=== PATIENT | female | born 1965 | race Caucasian/White ===

== ENCOUNTER 2017-07-16 16:16 | Emergency (ER) | payer MEDICAID ==
[~2017-07-16] VITALS: Ht 172.7 cm; Wt 81.6 kg
[2017-07-16 16:19] VITALS: BP 160/103
[2017-07-16] MEDS: KETOROLAC 60 MG/2 ML VIAL IM ONE (16:51)
[2017-07-16] MEDS: fentaNYL 0.05 MG/ML VIAL IM ONE ×2 (17:45→18:51)
[2017-07-16 19:05] VITALS: BP 158/99
[2017-07-16] MEDS ORDERED: SILVER NITRATE APPLICATOR 1 EA SWAB TP ONE (19:06)
== END 2017-07-16 19:05 | disposition home or self-care (01) ==
LOC: MED 16:16
DX: S01.01XA Laceration without foreign body of scalp, initial encounter (principal); Z88.0 Allergy status to penicillin; Y04.2XXA Assault by strike against or bumped into by another person, initial encounter; Y93.89 Activity, other specified; Y92.89 Other specified places as the place of occurrence of the external cause; Y99.8 Other external cause status
CPT/HCPCS: 12001; 90471; 90715; 96372; 99284; J1885; J3010

== ENCOUNTER 2017-08-02 21:56 | Emergency (ER) | payer MEDICAID ==
[~2017-08-02] VITALS: Ht 170.2 cm; Wt 84.8 kg
[2017-08-02 22:00] VITALS: BP 151/78
--- NOTE | 2017-08-02 22:09 | NUR ---
PT PROVIDED W/ URINE CUP AND ASSISTED TO RESTROOM.
--- NOTE | 2017-08-02 22:12 | NUR ---
PT ASSISTED TO LOBBY. VSS
--- NOTE | 2017-08-02 23:42 | NUR ---
PT TAKEN TO BED 11
--- NOTE | 2017-08-02 23:50 | NUR ---
PT C/O LUE PAIN FROM A CHRONIC INJURY (PINCHED NERVE AND DEGENARATIVE DISK) THAT WORSENED TODAY AND OVER THE LAST YEAR. PATIENT STATED THAT SHE IS INBETWEEN FINDING DOCTORS AND IS LOOKING FOR PAIN MANAGEMENT. PATIENT IS ALERT AND ORIENTED, NO ACUTE DISTRESS NOTED. WILL CONTINUE TO MONITOR CLOSELY.
--- NOTE | 2017-08-03 00:27 | NUR ---
Dr. Garcia evaluating patient at bedside.
[2017-08-03] MEDS ORDERED: CYCLOBENZAPRINE 10 MG TAB PO ONE (00:50)
[2017-08-03] MEDS ORDERED: KETOROLAC 30 MG/ML VIAL IM ONE (00:50)
[2017-08-03 01:04] LABS: APPEARANCE,URINE CLEAR (CLEAR); BILIRUBIN,URINE NEGATIVE (NEGATIVE); BLOOD, URINE NEGATIVE (NEGATIVE); COLOR,URINE YELLOW (YELLOW); LEUKOCYTE ESTERASE ,URINE NEGATIVE (NEGATIVE); NITRITE, URINE NEGATIVE (NEGATIVE); UGLUCOSE NEGATIVE (NEGATIVE)
[2017-08-03 01:11] LABS: BARBITURATE, URINE NEG. ng/ml (NEG <=200); BENZODIAZEPINE, URINE NEG. ng/mL (NEG <=200); CANNABINOID, URINE NEG. ng/mL (NEG <=50); COCAINE, URINE NEG. ng/mL (NEG <=300); OPIATE, URINE NEG. ng/mL (NEG <=2000); PHENCYCLIDINE SCREEN,URINE NEG. ng/mL (NEG <=25)
--- NOTE | 2017-08-03 01:17 | NUR ---
PATIENT ON STRETCHER IN NO ACUTE DISTRESS, WILL CONTINUE TO MONITOR CLOSELY.
[2017-08-03 02:05] VITALS: BP 138/67
--- NOTE | 2017-08-03 02:13 | NUR ---
Patient discharged with v/s stable. Written and verbal after care instructions given and explained. Patient alert, oriented and verbalized understanding of instructions. Ambulatory with steady gait. All questions addressed prior to discharge. ID band removed. Patient advised to follow up with PMD. Rx of FLEXERIL, IBUPROFEN AND NORCO given. Patient educated on indication of medication including possible reaction and side effects. Opportunity to ask questions provided and answered.
== END 2017-08-03 02:13 | disposition home or self-care (01) ==
LOC: MED 21:56
DX: M54.42 Lumbago with sciatica, left side (principal); Z88.0 Allergy status to penicillin
CPT/HCPCS: 80305; 81003; 96372; 99284; J1885

== ENCOUNTER 2017-12-21 16:53 | Emergency (ER) | payer MEDICAID ==
[~2017-12-21] VITALS: Ht 165.1 cm; Wt 88.0 kg
[2017-12-21 16:55] VITALS: BP 112/77
--- NOTE | 2017-12-21 16:57 | NUR ---
PT TO BED 6 VIA WHEELCHAIR
--- NOTE | 2017-12-21 17:00 | NUR ---
52Y/F BIB SELF C/O CHRONIC LOWER BACK PAIN RADIATING TO BL LOWER EXT WORSE ON THE LT FOR THE LAST MONTH; DENIES INJURY. PT IS AAOX4, VSS, BED DOWN, BEDRAIL UP X 1, ER MD AWARE AND NOTIFIED OF PT STATUS. HX; RHEUMATOID ARTHRITIS, COPD, HTN, HEP C RX; LOSARTAN, HYDROXYZINE, BACLOFEN, CYCLOBENZAPRINE
[2017-12-21] MEDS ORDERED: KETOROLAC 60 MG/2 ML VIAL IM ONE (17:45)
--- NOTE | 2017-12-21 17:45 | NUR ---
Patient being evaluated by physician at bedside.
[2017-12-21 18:44] VITALS: BP 138/77
--- NOTE | 2017-12-21 18:44 | NUR ---
Patient discharged with v/s stable. Written and verbal after care instructions given and explained. Patient alert, oriented and verbalized understanding of instructions. Wheel Chair Assisted with to car. All questions addressed prior to discharge. ID band removed. Patient advised to follow up with PMD. Rx of Tramadol given. Patient educated on indication of medication including possible reaction and side effects. Opportunity to ask questions provided and answered.
== END 2017-12-21 18:44 | disposition home or self-care (01) ==
LOC: MED 16:53
DX: M54.5 Low back pain (principal); I10 Essential (primary) hypertension; J44.9 Chronic obstructive pulmonary disease, unspecified; F17.200 Nicotine dependence, unspecified, uncomplicated; Z87.39 Personal history of other diseases of the musculoskeletal system and connective tissue; Z88.0 Allergy status to penicillin
CPT/HCPCS: 96372; 99283; J1885

== ENCOUNTER 2018-03-27 13:57 | Emergency (ER) | payer MEDICAID ==
[~2018-03-27] VITALS: Ht 170.2 cm; Wt 90.7 kg
[2018-03-27 14:03] VITALS: BP 153/112
--- NOTE | 2018-03-27 14:09 | NUR ---
53 YO FEMALE BIBA C/O LOW BACK PAIN X 4 DAYS & WORSE TODAY. HX 0F SCIATICA, HTN, HEP CM ASTHMA, COPD. ALLERGY TO PCN. AWAKE AND ALERT ON ARRIVAL. DENIES N/V/D. PATIENT STATES PAIN OF 8/10 AT THIS TIME. PATIENT POSITIONED FOR COMFORT; HOB ELEVATED; BEDRAILS UP X2; BED DOWN. ER MD MADE AWARE OF PT STATUS.
[2018-03-27] MEDS ORDERED: methylPREDNISolone SS 125 MG in WATER STERILE 2 ML IM ONE (14:35)
[2018-03-27] MEDS ORDERED: HYDROcodone/APAP 10/325 MG 1 TAB TAB PO ONE (14:35)
[2018-03-27 15:37] VITALS: BP 153/112
--- NOTE | 2018-03-27 15:37 | NUR ---
Patient discharged with v/s stable. Written and verbal after care instructions given and explained. Patient alert, oriented and verbalized understanding of instructions. Wheel Chair Assisted with to car. All questions addressed prior to discharge. ID band removed. Patient advised to follow up with PMD. Rx of ULTRAM & NACAN given. Patient educated on indication of medication including possible reaction and side effects. Opportunity to ask questions provided and answered.
== END 2018-03-27 15:37 | disposition home or self-care (01) ==
LOC: MED 13:57
DX: M54.31 Sciatica, right side (principal); I10 Essential (primary) hypertension; J44.9 Chronic obstructive pulmonary disease, unspecified; Z88.0 Allergy status to penicillin
CPT/HCPCS: 96372; 99283; J2930

== ENCOUNTER 2018-11-17 20:20 | Emergency (ER) | payer MEDICAID, OTHER ==
[~2018-11-17] VITALS: Ht 170.2 cm; Wt 90.7 kg
[2018-11-17 20:25] VITALS: BP 173/104
--- NOTE | 2018-11-17 20:33 | NUR ---
PT WHEELCHAIR TO LOBBY.
--- NOTE | 2018-11-17 20:50 | NUR ---
PATIENT PRESENTS TO ED WITH C/O GENERALIZED BODY ACHES X 2 DAYS. PATIENT STATES GX SCIATICA AND SCOLIOSIS, RAN OUT OF NORCO 10/325MG 3 WEEKS AGO, AND IS IN TRANSITION OF MOVING FOR [facility] TO [facility] . PT DENIES N/V/D; SKIN IS PINK/WARM/DRY; AAOX4 WITH EVEN AND STEADY GAIT; LUNGS CLEAR BL; HR EVEN AND REGULAR; PT DENIES ANY FEVER, CP, SOB, OR COUGH AT THIS TIME; PATIENT STATES PAIN OF 10/10 AT THIS TIME; VSS; PATIENT POSITIONED FOR COMFORT; HOB ELEVATED; BEDRAILS UP X2; BED DOWN. ER MD MADE AWARE OF PT STATUS.
[2018-11-17] MEDS ORDERED: KETOROLAC 30 MG/ML VIAL IM ONE (21:00)
--- NOTE | 2018-11-17 21:34 | NUR ---
Patient discharged with v/s stable. Written and verbal after care instructions given and explained. Patient alert, oriented and verbalized understanding of instructions. Ambulatory with steady gait. All questions addressed prior to discharge. ID band removed. Patient advised to follow up with PMD. Rx of NORCO 5/325 given. Patient educated on indication of medication including possible reaction and side effects. Opportunity to ask questions provided and answered.
[2018-11-17 21:40] VITALS: BP 155/91
== END 2018-11-17 21:40 | disposition home or self-care (01) ==
LOC: MED 20:20
DX: G89.29 Other chronic pain (principal); M41.9 Scoliosis, unspecified; I10 Essential (primary) hypertension; Z87.39 Personal history of other diseases of the musculoskeletal system and connective tissue; Z76.0 Encounter for issue of repeat prescription; Z88.0 Allergy status to penicillin
CPT/HCPCS: 96372; 99283; J1885

== ENCOUNTER 2018-12-15 17:06 | Emergency (ER) | payer OTHER ==
[~2018-12-15] VITALS: Ht 165.1 cm; Wt 101.6 kg
[2018-12-15 17:11] VITALS: BP 166/90
--- NOTE | 2018-12-15 17:20 | NUR ---
WAIT AT LOBBY WITH APPEALS ANALYST
--- NOTE | 2018-12-15 17:43 | NUR ---
PT W/C ASSISTED TO BED 11.
--- NOTE | 2018-12-15 17:46 | NUR ---
REFERRED FROM CLINIC C/O LEFT NECK ABSCESS X YESTERDAY. MED HX: HTN,COPD, ASRTHMA, RA, SCOLIOSIS, SCIATICA
[2018-12-15] MEDS ORDERED: KETOROLAC 30 MG/ML VIAL IM ONE (19:10)
[2018-12-15 19:56] LABS: BASOPHILS % (AUTO) 0.5 % (0.0-2.0); EOSINOPHILS # (AUTO) 0.1 K/uL (0-0.4); EOSINOPHILS % (AUTO) 2.2 % (0.0-4.0); HEMATOCRIT 43.4 % (36-48); HEMOGLOBIN 14.4 g/dL (12.0-16.0); LYMPHOCYTES % (AUTO) 19.6 % (20.5-51.1); MEAN CORPUSCULAR HEMOGLOBIN 33 pg (27-31); MEAN CORPUSCULAR HGB CONC 33 g/dL (33-37); MEAN CORPUSCULAR VOLUME 100.2 fL (80-94); MONOCYTES # (AUTO) 0.4 K/uL (0.8-1.0); MONOCYTES % (AUTO) 7.8 % (1.7-9.3); NEUTROPHILS # (AUTO) 3.7 K/uL (1.8-7.7); NEUTROPHILS % (AUTO) 69.9 % (42.2-75.2); PLATELET COUNT (AUTO) 111 K/uL (140-450); RED BLOOD CELL COUNT(AUTO) 4.34 MIL/uL (4.20-5.40); RED CELL DISTRIBUTION WIDTH 16.6 % (11.6-13.7); WHITE BLOOD COUNT (AUTO) 5.2 K/uL (4.8-10.8)
[2018-12-15 20:29] LABS: ANION GAP 9.3 (8-16); CARBON DIOXIDE 30.5 mmol/L (21-32); CREATININE 0.8 mg/dL (0.6-1.3); POTASSIUM 3.8 mmol/L (3.5-5.1)
[2018-12-15 20:35] LABS: ALBUMIN 2.9 g/dL (3.4-5.0); TOTAL BILIRUBIN 1.2 mg/dL (0.0-1.0)
--- NOTE | 2018-12-15 20:50 | NUR ---
NANCY CLIFFORD WITH PT
[2018-12-15] MEDS ORDERED: diphenhydrAMINE 50 MG/ML VIAL IVP ONE (21:15)
[2018-12-15] MEDS ORDERED: CLINDAMYCIN 600 MG in DEXTROSE 5% 50 ML IV ONE (21:15)
[2018-12-15] MEDS ORDERED: CLINDAMYCIN 600 MG/4 ML VIAL ONE (21:25)
[2018-12-15 22:09] VITALS: BP 171/80
--- NOTE | 2018-12-15 22:09 | NUR ---
PT DISCHARGED WITH PAPERWORK. RX BACTRIM. EDUCATED PT REGARDING MEDICATION AND S/E. EDUCATED PT REGARDING D/C DIAGNOSIS AND INSTRUCTIONS. PT VERBALIZED UNDERSTANDING OF TEACHING. TOLD PT TO FOLLOW UP WITH PCP AND WHEN TO RETURN TO ED. PT VSS. ALL QUESTIONS ANSWERED.
== END 2018-12-15 22:09 | disposition home or self-care (01) ==
LOC: MED 17:06
DX: L03.221 Cellulitis of neck (principal); Z88.0 Allergy status to penicillin
CPT/HCPCS: 36415; 70491; 80053; 83605; 85025; 87040; 96365; 96372; 96375; 99284; J1200; J1885; J3490; Q9967

== ENCOUNTER 2019-10-12 12:18 | Emergency (ER) | payer OTHER ==
[~2019-10-12] VITALS: Ht 170.2 cm; Wt 101.8 kg
[2019-10-12 12:26] VITALS: BP 122/82
[2019-10-12] MEDS ORDERED: HYDR-5092 PO (12:35)
--- NOTE | 2019-10-12 12:35 | NUR ---
PT BIB SELF VIA W/C C/O ABD/BACK PAIN STS " PANCREATITIS AND SCIATIC PAIN FOR 2 WEEKS." PAIN 10/10, PT STS "PAIN MEDS ARE NOT HELPING ANY MORE." PT WAS SEEN AT [facility] FOR SAME S/S 09/30 GIVEN IM PAIN MEDS AND SENT HOME. PT DENIES N/V/D; SKIN IS INTACT, JAUNDICE/WARM/DRY; AAOX4, PERRL, UNSTEADY GAIT S/P BACK PAIN FOR YEARS; LUNGS CLEAR BL, BREATHING UNLABORED; HR EVEN AND REGULAR, BL PERIPHERAL PULSES PRESENT; BS ACTIVE X4, NO TENDERNESS TO PALPATION. PT DENIES ANY FEVER, CP, SOB, OR COUGH AT THIS TIME; PT STATES 10/10 PAIN AT THIS TIME; VSS; PATIENT POSITIONED FOR COMFORT; HOB ELEVATED; BEDRAILS UP X2; BED DOWN.
--- NOTE | 2019-10-12 12:36 | NUR ---
PT TO ER BED12 VIA W/C UA DONE
[2019-10-12] MEDS ORDERED: PANTOPRAZOLE 40 MG INJ VIAL IVP ONE (12:40)
[2019-10-12] MEDS ORDERED: NACL 0.9% 500 ML IV ONE (12:40)
[2019-10-12 12:59] LABS: BASOPHILS # (AUTO) 0.1 K/uL (0.00-0.22); EOSINOPHILS # (AUTO) 0.2 K/uL (0-0.4); EOSINOPHILS % (AUTO) 2.3 % (0.0-4.0); HEMATOCRIT 33.2 % (36-48); HEMOGLOBIN 11.3 g/dL (12.0-16.0); LYMPHOCYTES # (AUTO) 1.6 K/uL (2.5-16.5); LYMPHOCYTES % (AUTO) 19.7 % (20.5-51.1); MEAN CORPUSCULAR HEMOGLOBIN 41 pg (27-31); MEAN CORPUSCULAR HGB CONC 34 g/dL (33-37); MEAN CORPUSCULAR VOLUME 120.8 fL (80-94); MONOCYTES # (AUTO) 1.1 K/uL (0.8-1.0); MONOCYTES % (AUTO) 12.9 % (1.7-9.3); NEUTROPHILS # (AUTO) 5.3 K/uL (1.8-7.7); NEUTROPHILS % (AUTO) 64.1 % (42.2-75.2); PLATELET COUNT (AUTO) 174 K/uL (140-450); RED BLOOD CELL COUNT(AUTO) 2.75 MIL/uL (4.20-5.40); RED CELL DISTRIBUTION WIDTH 21.8 % (11.6-13.7); WHITE BLOOD COUNT (AUTO) 8.2 K/uL (4.8-10.8)
--- NOTE | 2019-10-12 13:00 | NUR ---
LAB AT [facility], ER TO MAGDA.
[2019-10-12 13:12] LABS: CARBON DIOXIDE 28.7 mmol/L (21-32); POTASSIUM 3.7 mmol/L (3.5-5.1)
[2019-10-12 13:15] LABS: ALBUMIN 2.1 g/dL (3.4-5.0); TOTAL BILIRUBIN 7.1 mg/dL (0.0-1.0)
[2019-10-12 13:25] LABS: ACETAMINOPHEN < 0.5 ug/ml (10-30); SALICYLATE < 2.8 mg/dL (2.8-20.0)
[2019-10-12] MEDS ORDERED: MORPHINE SULFATE 2 MG/ML SYR IVP ONE (14:05)
[2019-10-12] MEDS ORDERED: ONDANSETRON 4 MG/2 ML VIAL IVP ONE (14:05)
[2019-10-12 14:09] LABS: BARBITURATE, URINE NEGATIVE ng/ml (NEG <=200); BENZODIAZEPINE, URINE NEGATIVE ng/mL (NEG <=200); CANNABINOID, URINE NEGATIVE ng/mL (NEG <=50); COCAINE, URINE NEGATIVE ng/mL (NEG <=300); OPIATE, URINE POSITIVE ng/mL (NEG <=2000); PHENCYCLIDINE SCREEN,URINE NEGATIVE ng/mL (NEG <=25)
[2019-10-12 14:36] VITALS: BP 118/78
--- NOTE | 2019-10-12 14:36 | NUR ---
Patient discharged with v/s stable. Written and verbal after care instructions given and explained. Patient verbalized understanding. WC ASSISTED. All questions addressed prior to discharge. Advised to follow up with PMD.
== END 2019-10-12 14:36 | disposition home or self-care (01) ==
LOC: MED 12:18
DX: F10.10 Alcohol abuse, uncomplicated (principal); E80.6 Other disorders of bilirubin metabolism; M54.16 Radiculopathy, lumbar region; M54.18 Radiculopathy, sacral and sacrococcygeal region; Z88.0 Allergy status to penicillin; Z79.899 Other long term (current) drug therapy
CPT/HCPCS: 36415; 80053; 80305; 81002; 83690; 85025; 93005; 96361; 96374; 96375; 99284; C9113; G0480; G0482; J2270; J2405; J7030

== ENCOUNTER 2019-10-15 17:03 | Inpatient (IN) | payer OTHER ==
[~2019-10-15] VITALS: Ht 165.1 cm; Wt 99.8 kg
[~2019-10-15 17:03] MED LIST: HYDR-5092 PO
[2019-10-15 17:07] VITALS: BP 116/57
[2019-10-15] MEDS ORDERED: MORPHINE SULFATE 4 MG/ML SYR IVP ONE (17:35)
[2019-10-15] MEDS ORDERED: BACL10TA4 PO (17:47)
[2019-10-15] MEDS ORDERED: LISI10TA11 PO (17:47)
[2019-10-15] MEDS ORDERED: MONT10TA35 PO (17:47)
--- NOTE | 2019-10-15 17:52 | NUR ---
54 YO FEMALE BIBA FROM HOME C/O RIGHT SIDED CHEST WALL PAIN X 3 DAYS; PT ALSO C/O BILATERAL LOWER LEG SWELLING X4 DAYS. PT USES WALKER OR W/C AT HOME FOR AMBULATION, DENIES SOB, DENIES N/V HX LIVER CIRRHOSIS, STOPPED DRINKING 3 WEEKS AGO, ASTHMA, COPD, SCIATICA, RA, HTN
--- NOTE | 2019-10-15 17:52 | NUR ---
LAB AND RAD AT BEDSIDE
[2019-10-15 18:04] LABS: BASOPHILS # (AUTO) 0.1 K/uL (0.00-0.22); BASOPHILS % (AUTO) 1.3 % (0.0-2.0); EOSINOPHILS # (AUTO) 0.3 K/uL (0-0.4); EOSINOPHILS % (AUTO) 2.8 % (0.0-4.0); HEMATOCRIT 30.6 % (36-48); HEMOGLOBIN 10.1 g/dL (12.0-16.0); LYMPHOCYTES # (AUTO) 2.1 K/uL (2.5-16.5); MEAN CORPUSCULAR HEMOGLOBIN 41 pg (27-31); MEAN CORPUSCULAR HGB CONC 33 g/dL (33-37); MONOCYTES # (AUTO) 1.1 K/uL (0.8-1.0); MONOCYTES % (AUTO) 11.3 % (1.7-9.3); NEUTROPHILS # (AUTO) 6.4 K/uL (1.8-7.7); NEUTROPHILS % (AUTO) 63.6 % (42.2-75.2); PLATELET COUNT (AUTO) 155 K/uL (140-450); RED BLOOD CELL COUNT(AUTO) 2.51 MIL/uL (4.20-5.40); RED CELL DISTRIBUTION WIDTH 21.2 % (11.6-13.7); WHITE BLOOD COUNT (AUTO) 10.1 K/uL (4.8-10.8)
[2019-10-15 18:14] LABS: ANION GAP 11.2 (8-16); CARBON DIOXIDE 26.2 mmol/L (21-32); CREATININE 0.8 mg/dL (0.6-1.3); POTASSIUM 4.4 mmol/L (3.5-5.1); TOTAL BILIRUBIN 5.2 mg/dL (0.0-1.0)
[2019-10-15] MEDS ORDERED: HYDR-5092 PO (19:15)
[2019-10-15] MEDS ORDERED: ACETAMINOPHEN 325 MG TAB PO PRN (19:20)
--- NOTE | 2019-10-15 19:23 | NUR ---
REPORT RECEIVED FROM BONNIE ESQUIVEL FOR CONTINUITY OF CARE.
--- NOTE | 2019-10-15 20:00 | NUR ---
PT RESTING IN BED, LOCKED AND IN LOWEST POSITION, HOB ELEVATED, SIDE RAIL X2 FOR PT SAFETY. VISIBLE RISE AND FALL OF CHEST, RR EVEN AND UNLABORED, VSS.
--- NOTE | 2019-10-15 20:20 | NUR ---
PT PROVIDED CRACKERS AND ICE CHIPS.
--- NOTE | 2019-10-15 20:50 | NUR ---
Patient will be admitted to care of DR. WHITE. Admited to [facility]. Will go to [id number]. Belongings list completed. Report to BONNIE PATEL.
--- NOTE | 2019-10-15 20:50 | NUR ---
ARRIVED TO THE UNIT AT THIS TIME VIA WHEELCHAIR. PT IS AWAKE AND ALERT REPORTING DISCOMFORT 5/10 TO ABDOMINAL AREA. PREVIOUSLY TREATED WITH MORPHINE IN THE ER. PT HAS R AC 20 THAT IS INTACT AND PATENT. V/S: 99.1, 96, 18, 109/61, 97 % RA. LUNG SOUNDS CLEAR AND ACTIVE BS. ABDOMEN IS ROUND AND REPORTS DISCOMFORT TO UPPER ABDOMINAL AREA. PT HAS DX: ASCITES. PT ORIENTED TO ROOM, TV, RESTROOM AND CALL LIGHT. ALL SAFETY MEASURES IN PLACE. WILL CONTINUE TO MONITOR.
[2019-10-15] MEDS: SPIRONOLACTONE 50 MG TAB PO SCH (21:00)
[2019-10-15] MEDS: FUROSEMIDE 40 MG/4 ML VIAL IVP SCH (21:48)
[2019-10-15] MEDS: HYDROcodone/APAP 10/325 MG 1 TAB TAB PO PRN (21:49)
--- NOTE | 2019-10-15 21:50 | NUR ---
PT RECEIVED NORCO 1 TAB FOR PAIN PER MD ORDER. DUE TO ABDOMINAL PAIN 07/09. PT WAS GIVEN LASIX IVP HOWEVER ALDACTONE WAS HELD DUE TO BP 109/61 AND RECEIVING LASIX. PT COOPERATIVE WITH ADMISSION QUESTIONS. COMMUNICATES EFFECTIVELY CALL LIGHT WITHIN REACH.
--- NOTE | 2019-10-15 23:50 | NUR ---
PT REPORTED HAVING DIFFICULTY SLEEPING. DR. CROWELL PAGED WAITING FOR HIS RESPONSE. DENIES ANY FURTHER DISCOMFORT AT THIS TIME. V/S: 97.6, 96, 18, 106/51, 96% RA. PT EDUCATED ON RELAXATION BREATHING TO PROMOTE SLEEP. SAFETY MEASURES IN PLACE.
[2019-10-16] VITALS: BP 106/55
[2019-10-16] MEDS ORDERED: TEMAZEPAM 15 MG CAP PO PRN (00:05)
--- NOTE | 2019-10-16 01:30 | NUR ---
RECEIVED CALL FROM PHARMACY REGARDING NOT HAVING RESTORIL 7.5 MG PO PER MD ORDER. ONLY HAVE 15MG PO. PAGED DR. CROWELL AND ORDERED TO D/C PREVIOUS RESTORIL ORDER AND ORDERED RESTORIL 15MG PO X1 NOW FOR INSOMNIA. PT IS NOW SLEEPING IN NO DISTRESS. MEDICATION WILL NOT BE GIVEN DUE TO PT. NOW ASLEEP.
[2019-10-16] MEDS: HYDROcodone/APAP 10/325 MG 1 TAB TAB PO PRN ×3 (02:31→15:48)
--- NOTE | 2019-10-16 02:31 | NUR ---
PT. C/O PAIN 07/09 RECEIVED NORCO PO PER MD ORDER. PT AMBULATED TO RESTROOM WITH STANDBY ASSISTANCE. VOIDED X 1. RETURNED TO BED. NOW IN BED. CALL LIGHT WITHIN REACH, SAFETY MEASURES IN PLACE.
--- NOTE | 2019-10-16 04:30 | NUR ---
PT IS RESTING IN BED WITH EYES CLOSED, MUSCLES RELAXED. IN NO DISTRESS. RESPIRATION EVEN AND UNLABORED. WILL CONTINUE TO MONITOR.
--- NOTE | 2019-10-16 06:13 | NUR ---
PT IN SEMI-FOWLERS POSITION ASLEEP, RESPIRATION EVEN AND UNLABORED. IN NO DISTRESS. WILL CONTINUE TO MONITOR
[2019-10-16 07:13] LABS: BASOPHILS # (AUTO) 0.1 K/uL (0.00-0.22); BASOPHILS % (AUTO) 1.3 % (0.0-2.0); EOSINOPHILS # (AUTO) 0.3 K/uL (0-0.4); EOSINOPHILS % (AUTO) 4.8 % (0.0-4.0); HEMOGLOBIN 9.3 g/dL (12.0-16.0); LYMPHOCYTES # (AUTO) 1.8 K/uL (2.5-16.5); LYMPHOCYTES % (AUTO) 26.3 % (20.5-51.1); MEAN CORPUSCULAR HEMOGLOBIN 41 pg (27-31); MEAN CORPUSCULAR HGB CONC 33 g/dL (33-37); MEAN CORPUSCULAR VOLUME 123.7 fL (80-94); MONOCYTES # (AUTO) 0.8 K/uL (0.8-1.0); MONOCYTES % (AUTO) 12.1 % (1.7-9.3); NEUTROPHILS # (AUTO) 3.9 K/uL (1.8-7.7); NEUTROPHILS % (AUTO) 55.5 % (42.2-75.2); PLATELET COUNT (AUTO) 116 K/uL (140-450); RED BLOOD CELL COUNT(AUTO) 2.26 MIL/uL (4.20-5.40); RED CELL DISTRIBUTION WIDTH 21.2 % (11.6-13.7)
--- NOTE | 2019-10-16 07:38 | NUR ---
RECEIVED REPORT FROM PM RN. C/O: CHEST PAIN. DX: ASITICS, CIRRHOSIS. HX: HTN, COPD, CIRRHOSIS, SUBSTANCE ABUSE. ALLERGIES: PENICILLINS, NSAIDS, CONTRAST DYE. NSR. FULL CODE. 20G RT AC, SALINE LOCK. 2G NA DIET. SHE HAS A WHEEL CHAIR AT THE BEDSIDE. RA. SKIN IS INTACT. EDEMA Bilateral lower extremities. PLAN: SS CONSULT, ULTRA SOUND, MONITOR: BP, PAIN, AND LABS.
--- NOTE | 2019-10-16 07:38 | NUR ---
REPORT GIVEN TO AM RN FOR CONTINUITY OF CARE. PT IS STABLE
[2019-10-16 07:39] LABS: PROTHROMBIN TIME 15.5 secs (10.8-13.4)
[2019-10-16 07:40] LABS: ALBUMIN 1.7 g/dL (3.4-5.0); ANION GAP 11.6 (8-16); CARBON DIOXIDE 27.7 mmol/L (21-32); CREATININE 0.8 mg/dL (0.6-1.3); POTASSIUM 4.3 mmol/L (3.5-5.1); TOTAL BILIRUBIN 4.8 mg/dL (0.0-1.0)
[2019-10-16 08:00] VITALS: BP 108/63
[2019-10-16] MEDS ORDERED: FURO-570 PO (08:31)
[2019-10-16] MEDS ORDERED: FUROSEMIDE 40 MG TAB PO SCH (09:00)
[2019-10-16] MEDS ORDERED: ALBUMIN HUMAN 25% 100 ML IV SCH ×2 (09:00→14:00)
[2019-10-16] MEDS: SPIRONOLACTONE 50 MG TAB PO SCH (09:00)
--- NOTE | 2019-10-16 09:30 | NUR ---
PASSED PAIN MEDICATION. PT HAD 6/10 ABDOMINAL PAIN.
[2019-10-16] MEDS: FUROSEMIDE 40 MG/4 ML VIAL IVP SCH (09:56)
--- NOTE | 2019-10-16 10:00 | NUR ---
STARTED ALBUMIN, PT TOLERATED. NO REPORTS OF ADVERSE REACTIONS.
--- NOTE | 2019-10-16 10:30 | NUR ---
DECREASE IN PAIN. PT IS COMFORTABLE IN BED
--- NOTE | 2019-10-16 14:00 | NUR ---
STARTED SECOND ALBUMIN. PT TOLERATED WELL. US AT BED SIDE
[2019-10-16 16:25] VITALS: BP 108/63
--- NOTE | 2019-10-16 16:30 | NUR ---
RECEIVED D/C ORDERS FROM DR. WHITE.
--- NOTE | 2019-10-16 16:30 | NUR ---
GAVE HOMELESS RESOURCE PACKET TO PT. PROVIDED D/C INSTRUCTIONS.
--- NOTE | 2019-10-16 17:00 | NUR ---
PT WAS D/C. PT BROUGHT TO LOBBY VIA WHEEL CHAIR. PT WAITING FOR RIDE.
[2019-10-16] MEDS ORDERED: TEMAZEPAM 15 MG CAP PO ONE (21:00)
== END 2019-10-16 17:00 | disposition home or self-care (01) ==
LOC: MED 17:03 → MTU 19:23
PROVIDERS: ADMIT Internal Medicine; ATTEND Internal Medicine
PROC: 0W9G3ZZ Drainage of Peritoneal Cavity, Percutaneous Approach (ICD-10-PCS; principal; 2019-10-16)
DX: K74.60 Unspecified cirrhosis of liver (principal); R18.8 Other ascites; Z88.0 Allergy status to penicillin; F10.10 Alcohol abuse, uncomplicated
CPT/HCPCS: 36415; 71045; 76705; 80053; 82140; 83690; 83880; 85025; 85610; 85730; 87081; 96374; 99285; J1940; J2270; P9046; Q0092

== ENCOUNTER 2020-06-16 13:39 | Emergency (ER) | payer OTHER ==
[~2020-06-16] VITALS: Ht 154.9 cm; Wt 81.6 kg
[~2020-06-16 13:39] MED LIST changes: +BACL10TA4 PO; +FURO-570 PO; +MONT10TA35 PO
--- NOTE | 2020-06-16 13:40 | NUR ---
Patient BIBA to bed 2 at this time
--- NOTE | 2020-06-16 13:47 | NUR ---
55 YEAR OLD FEMALE COMPLAINS OF HIP PAIN X 3 WEEKS. PT STATES THAT PAIN STARTED IN LEFT SIDE THEN BEGAN ONTO RIGHT SIDE. PT STATES IT IS LIKELY DUE TO SCIATICA AND RHEUMATOID ARTHRITIS FLAREUP. PT AOX4, BREATHING EVEN AND UNLABORED, SKIN WARM AND DRY. BED IN LOWEST POSITION, LOCKED, BED RAIL UPX1. PMH - HTN, DM2, COPD, ASTHMA, PANCREATITIS, RA, SCIATICA ALLERGIES - PCN
[2020-06-16 13:48] VITALS: BP 134/81
[2020-06-16] MEDS ORDERED: ONDANSETRON 4 MG ODT PO ONE (14:30)
[2020-06-16] MEDS ORDERED: oxyCODONE/APAP 5/325 MG 1 TAB TAB PO ONE (14:30)
[2020-06-16] MEDS ORDERED: MORPHINE SULFATE 4 MG/ML SYR IM ONE (14:30)
[2020-06-16] MEDS ORDERED: GABAPENTIN 300 MG CAP PO ONE (16:10)
[2020-06-16] MEDS ORDERED: GABA300C PO (16:17)
[2020-06-16 16:28] VITALS: BP 134/81
--- NOTE | 2020-06-16 16:29 | NUR ---
Patient discharged with v/s stable. Written and verbal after care instructions given and explained. Patient alert, oriented and verbalized understanding of instructions. Ambulatory with steady gait. All questions addressed prior to discharge. ID band removed. Patient advised to follow up with PMD. Rx of GABAPENTIN given. Patient educated on indication of medication including possible reaction and side effects. Opportunity to ask questions provided and answered.
== END 2020-06-16 16:29 | disposition home or self-care (01) ==
LOC: MED 13:39
DX: G89.29 Other chronic pain (principal); M25.552 Pain in left hip; M54.5 Low back pain; J44.9 Chronic obstructive pulmonary disease, unspecified; I10 Essential (primary) hypertension; Z88.0 Allergy status to penicillin; Z79.899 Other long term (current) drug therapy
CPT/HCPCS: 96372; 99284; J2270; Q0162